=== PATIENT | male | born 1930 | race Caucasian/White ===

== ENCOUNTER 2017-08-21 18:30 | Inpatient (IN) | payer OTHER ==
[~2017-08-21] VITALS: Ht 180.3 cm; Wt 110.5 kg
[2017-08-21 19:17] LABS: HEMOGLOBIN 14.8 G/DL (12.5-16.6); MCH 31.8 PG (29.0-34.0); MCHC 34.4 G/DL (30.0-36.0); MCV 92.5 FL (86-99); PLATELET COUNT 102 K/uL (156-360); RBC DIS.WIDTH-CV 13.1 % (11.8-14.6); RBC DIS.WIDTH-SD 44.6 % (39-53); RED BLOOD COUNT 4.65 M/uL (4.00-5.50); WHITE BLOOD COUNT 5.2 K/uL (4.1-10.2)
[2017-08-21 19:27] LABS: CHLORIDE 102 mEq/L (99-109); POTASSIUM 3.9 mEq/L (3.7-5.4); SODIUM 135 mEq/L (136-147)
[2017-08-21 19:28] LABS: GLUCOSE 167 mg/dL (70-99)
[2017-08-21 19:32] LABS: GFR ESTIMATE (CALCULATED) 34 mL/min/ (58.99-99999)
[2017-08-21 19:33] LABS: UREA NITROGEN (BUN) 39 mg/dL (9-23)
[2017-08-21 19:42] LABS: TROP-I INTERPRETATION NEGATIVE; TROPONIN-I 0.05 ng/mL (0.0-0.30)
[2017-08-21] MEDS ORDERED: NORVASC5 MG PO (20:43)
[2017-08-21] MEDS ORDERED: LOPRESSOR100 M1 PO (20:43)
[2017-08-21] MEDS ORDERED: ALTACE10 MG PO (20:44)
[2017-08-21] MEDS ORDERED: ZYLOPRIM100 MG PO (20:44)
[2017-08-21] MEDS ORDERED: COZAAR100 MG PO (20:44)
[2017-08-21] MEDS ORDERED: HYDROCHLOROTHIA25 MG PO (20:45)
[2017-08-21] MEDS ORDERED: LOW DOSE ASPIRI81 M1 PO (20:46)
[2017-08-21] MEDS ORDERED: HYTRIN1 MG PO (20:46)
[2017-08-21] MEDS ORDERED: LIPITOR40 MG PO (20:46)
[2017-08-21] MEDS ORDERED: FISH OIL 1,2001 EAC3 PO (20:47)
[2017-08-21] MEDS ORDERED: LYRICA100 MG PO (20:47)
[2017-08-22 00:13] VITALS: BP 115/58
[2017-08-22 01:50] LABS: TROP-I INTERPRETATION INDETERMINATE; TROPONIN-I 0.32 ng/mL (0.0-0.30)
[2017-08-22 04:18] VITALS: BP 100/54
[2017-08-22 08:21] VITALS: BP 106/55
[2017-08-22 09:23] LABS: HEMATOCRIT 39.7 % (38.0-50.0); HEMOGLOBIN 13.3 G/DL (12.5-16.6); MCH 30.7 PG (29.0-34.0); MCHC 33.5 G/DL (30.0-36.0); MCV 91.7 FL (86-99); PLATELET COUNT 109 K/uL (156-360); RBC DIS.WIDTH-CV 12.9 % (11.8-14.6); RBC DIS.WIDTH-SD 43.5 % (39-53); RED BLOOD COUNT 4.33 M/uL (4.00-5.50); WHITE BLOOD COUNT 4.2 K/uL (4.1-10.2)
[2017-08-22 09:53] LABS: CHLORIDE 101 MEQ/L (99-109); GFR ESTIMATE (CALCULATED) 34 mL/min/ (58.99-99999); GLUCOSE 228 mg/dL (70-99); POTASSIUM 3.8 MEQ/L (3.7-5.4); SODIUM 134 MEQ/L (136-147); UREA NITROGEN (BUN) 39 mg/dL (9-23)
[2017-08-22 11:20] LABS: TROP-I INTERPRETATION NEGATIVE; TROPONIN-I 0.18 ng/mL (0.0-0.30)
[2017-08-22 11:58] VITALS: BP 119/65
[2017-08-22 15:19] LABS: CHLORIDE 99 MEQ/L (99-109); GFR ESTIMATE (CALCULATED) 34 mL/min/ (58.99-99999); GLUCOSE 265 mg/dL (70-99); SODIUM 130 MEQ/L (136-147); UREA NITROGEN (BUN) 42 mg/dL (9-23)
[2017-08-22 16:33] VITALS: BP 115/57
[2017-08-22 23:37] VITALS: BP 135/62
[2017-08-23 03:58] VITALS: BP 125/59
[2017-08-23 07:42] VITALS: BP 123/71
[2017-08-23 10:30] LABS: CHLORIDE 99 MEQ/L (99-109); CREATININE 1.8 MG/DL (0.6-1.3); GFR ESTIMATE (CALCULATED) 38 mL/min/ (58.99-99999); GLUCOSE 280 mg/dL (70-99); POTASSIUM 4.1 MEQ/L (3.7-5.4); SODIUM 132 MEQ/L (136-147); UREA NITROGEN (BUN) 49 mg/dL (9-23)
[2017-08-23 11:56] VITALS: BP 116/57
[2017-08-23] MEDS ORDERED: PREDNISONE10 MG PO (12:15)
[2017-08-23] MEDS ORDERED: PROVENTIL HFA6.7 GM IH (12:17)
== END 2017-08-23 13:11 | disposition home or self-care (01) | DRG 206 ==
LOC: EME 18:30 → EDOF 21:36 → ENRESERV 21:45 → 4SOUTH 23:46
PROVIDERS: Hospitalist; Nurse Practitioner Family; Physician Assistant
DX: R09.02 Hypoxemia (principal); J45.901 Unspecified asthma with (acute) exacerbation; R07.9 Chest pain, unspecified; R06.89 Other abnormalities of breathing; I35.0 Nonrheumatic aortic (valve) stenosis; I12.9 Hypertensive chronic kidney disease with stage 1 through stage 4 chronic kidney disease, or unspecified chronic kidney disease; N18.9 Chronic kidney disease, unspecified; E78.5 Hyperlipidemia, unspecified; K21.9 Gastro-esophageal reflux disease without esophagitis; M10.9 Gout, unspecified; I25.10 Atherosclerotic heart disease of native coronary artery without angina pectoris; H10.9 Unspecified conjunctivitis; E66.9 Obesity, unspecified; Z68.33 Body mass index [BMI] 33.0-33.9, adult; Z77.090 Contact with and (suspected) exposure to asbestos; E78.00 Pure hypercholesterolemia, unspecified; E87.1 Hypo-osmolality and hyponatremia; E86.9 Volume depletion, unspecified; Z79.82 Long term (current) use of aspirin; Z87.891 Personal history of nicotine dependence
CPT/HCPCS: 71046; 71250; 78582; 80048; 80048 91; 81003; 84484; 85027; 85379; 87040; 87502; 93005; 93970; 94640; 94640 76; 94799; 99202; 99281; 99285; A9540; A9567; G0378; J0456; J1650; J2920